=== PATIENT | male | born 1980 | race Caucasian/White ===

== ENCOUNTER 2023-05-17 14:10 | Emergency (ER) | payer OTHER ==
[~2023-05-17] VITALS: Ht 180.3 cm; Wt 98.4 kg
[2023-05-17 14:13] VITALS: BP_SYST 132; PULSE 92; RESP 20; TEMP 98.3; O2SAT 96
[2023-05-17] MEDS ORDERED: KETOROLAC TROMETHAMINE 60 MG/2 ML VIAL IM ONE (16:30)
[2023-05-17] MEDS ORDERED: DICL75TA5 PO (18:14)
[2023-05-17] MEDS ORDERED: DICL20GE TP (18:14)
[2023-05-17 18:25] VITALS: BP_SYST 125; PULSE 86; RESP 16; TEMP 98.6; O2SAT 97
== END 2023-05-17 18:25 | disposition home or self-care (01) ==
LOC: SED 14:10
DX: S22.31XA Fracture of one rib, right side, initial encounter for closed fracture (principal); Z79.899 Other long term (current) drug therapy; W18.2XXA Fall in (into) shower or empty bathtub, initial encounter; Y93.89 Activity, other specified; Y92.89 Other specified places as the place of occurrence of the external cause; Y99.8 Other external cause status
CPT/HCPCS: 99284; 72072; 72100; 96372; J1885